=== PATIENT | male | born 1955 | race Caucasian/White ===

== ENCOUNTER 2023-08-24 10:08 | Emergency (ER) | payer MEDICARE ==
[~2023-08-24] VITALS: Ht 182.9 cm; Wt 108.9 kg
[2023-08-24] MEDS ORDERED: ONDANSETRON HCL INJ 2MG/ML 2ML 2 MG/ML VIAL IV STA (10:16)
[2023-08-24] MEDS ORDERED: LACTATED RINGER'S 1,000 ML IV ONE (10:30)
[2023-08-24 10:36] VITALS: O2SAT 100
== END 2023-08-24 12:42 | disposition short-term general hospital (02) ==
LOC: ER 10:18
DX: K92.2 Gastrointestinal hemorrhage, unspecified (principal)